=== PATIENT | female | born 1955 | race Caucasian/White ===

== ENCOUNTER 2017-03-10 07:34 | Emergency (ER) | payer OTHER ==
[~2017-03-10] VITALS: Ht 162.6 cm; Wt 75.4 kg
[2017-03-10 08:26] LABS: HEMATOCRIT 41.7 % (36.0-46.0); MCH 29.8 PG (29.0-34.0); MCHC 34.1 G/DL (30.0-36.0); MCV 87.4 FL (83-99); MEAN PLAT.VOLUME 9.1 uM^3 (9.5-12.4); PLATELET COUNT 301 K/uL (156-360); RBC DIS.WIDTH-CV 12.9 % (11.8-14.6); RBC DIS.WIDTH-SD 41.3 % (39-53); RED BLOOD COUNT 4.77 M/uL (3.80-5.20); WHITE BLOOD COUNT 7.2 K/uL (4.1-10.2)
[2017-03-10 08:36] LABS: CHLORIDE 105 mEq/L (99-109); POTASSIUM 3.9 mEq/L (3.7-5.4); SODIUM 140 mEq/L (136-147)
[2017-03-10 08:38] LABS: GLUCOSE 123 mg/dL (70-99)
[2017-03-10 08:40] LABS: ANION GAP 12 MEQ/L (2-14)
[2017-03-10 08:42] LABS: GFR ESTIMATE (CALCULATED) > 59 mL/min/
[2017-03-10 08:43] LABS: UREA NITROGEN (BUN) 13 mg/dL (9-23)
[2017-03-10 10:24] LABS: TROP-I INTERPRETATION NEGATIVE; TROPONIN-I < 0.01 ng/mL (0.0-0.30)
[2017-03-10 11:09] LABS: ADD MIUA? YES; BILIRUBIN NEGATIVE; BLOOD SMALL; COLOR YELLOW ((YELLOW)); GLUCOSE (STRIP) NEGATIVE; KETONES NEGATIVE; LEUKOCYTES NEGATIVE; NITRITE NEGATIVE; PROTEIN (STRIP) NEGATIVE; UROBILINOGEN 0.2 MG/DL (0.2-1.0)
[2017-03-10 11:11] LABS: BACTERIA RARE /HPF; EPITHELIAL CELLS NONE SEEN /HPF; MUCUS TRACE /LPF; RED BLOOD CELLS 0-5 /HPF (0-5); UCUL ADDED? NO; WHITE BLOOD CELLS 0-5 /HPF (0-5)
[2017-03-10] MEDS ORDERED: ZOFRAN ODT4 MG PO (13:22)
[2017-03-10 13:56] VITALS: BP 143/76
== END 2017-03-10 13:57 | disposition home or self-care (01) ==
LOC: EME 07:34
DX: R42 Dizziness and giddiness (principal); R11.2 Nausea with vomiting, unspecified; R51 Headache; K21.9 Gastro-esophageal reflux disease without esophagitis; E04.2 Nontoxic multinodular goiter; Z90.49 Acquired absence of other specified parts of digestive tract; E78.5 Hyperlipidemia, unspecified
CPT/HCPCS: 70496; 70498; 70551; 80048; 81003; 84484; 85027; 93005; 99281; 99285; J2405; J7030

== ENCOUNTER 2017-03-11 08:44 | Observation (INO) | payer OTHER ==
[~2017-03-11] VITALS: Ht 162.6 cm; Wt 77.1 kg
[~2017-03-11 08:44] MED LIST: ZOFRAN ODT4 MG PO
[2017-03-11 09:37] LABS: HEMATOCRIT 40.4 % (36.0-46.0); MCH 29.6 PG (29.0-34.0); MCHC 34.2 G/DL (30.0-36.0); MCV 86.5 FL (83-99); MEAN PLAT.VOLUME 9.1 uM^3 (9.5-12.4); PLATELET COUNT 291 K/uL (156-360); RBC DIS.WIDTH-SD 40.5 % (39-53); RED BLOOD COUNT 4.67 M/uL (3.80-5.20); WHITE BLOOD COUNT 5.8 K/uL (4.1-10.2)
[2017-03-11 09:46] LABS: CHLORIDE 105 mEq/L (99-109); POTASSIUM 3.8 mEq/L (3.7-5.4); SODIUM 137 mEq/L (136-147)
[2017-03-11 09:48] LABS: GLUCOSE 143 mg/dL (70-99)
[2017-03-11 09:49] LABS: ANION GAP 11 MEQ/L (2-14)
[2017-03-11 09:52] LABS: GFR ESTIMATE (CALCULATED) > 59 mL/min/
[2017-03-11 09:53] LABS: UREA NITROGEN (BUN) 12 mg/dL (9-23)
[2017-03-11 09:57] LABS: TROP-I INTERPRETATION NEGATIVE; TROPONIN-I < 0.01 ng/mL (0.0-0.30)
[2017-03-11 14:19] VITALS: BP 145/75
[2017-03-11 20:00] VITALS: BP 162/85
[2017-03-12 00:48] VITALS: BP 132/70
[2017-03-12 04:25] VITALS: BP 129/67
[2017-03-12 06:07] LABS: HEMATOCRIT 34.6 % (36.0-46.0); MCH 29.8 PG (29.0-34.0); MCHC 33.5 G/DL (30.0-36.0); MCV 88.9 FL (83-99); MEAN PLAT.VOLUME 9.3 uM^3 (9.5-12.4); PLATELET COUNT 233 K/uL (156-360); RBC DIS.WIDTH-CV 13.3 % (11.8-14.6); RBC DIS.WIDTH-SD 43.5 % (39-53); RED BLOOD COUNT 3.89 M/uL (3.80-5.20); WHITE BLOOD COUNT 4.6 K/uL (4.1-10.2)
[2017-03-12 07:40] LABS: ALKALINE PHOSPHATASE 41 IU/L (3-129); CHLORIDE 111 MEQ/L (99-109); SAMPLE HEMOLYSIS CHECK 0; SAMPLE ICTERIC CHECK 0; SAMPLE LIPEMIA CHECK 0; TOTAL BILIRUBIN 1.3 MG/DL (0.0-1.0); UREA NITROGEN (BUN) 11 mg/dL (9-23)
[2017-03-12 07:41] LABS: GLUCOSE 81 mg/dL (70-99)
[2017-03-12 07:42] LABS: SODIUM 144 MEQ/L (136-147)
[2017-03-12 08:20] LABS: GFR ESTIMATE (CALCULATED) > 59 mL/min/
[2017-03-12 08:24] LABS: ANION GAP 8 MEQ/L (2-14)
[2017-03-12 08:35] VITALS: BP 147/84
[2017-03-12] MEDS ORDERED: PROMETHAZINE HC25 M1 PO (11:44)
[2017-03-12] MEDS ORDERED: ANTIVERT25 MG PO (11:44)
[2017-03-12] MEDS ORDERED: PEPCID40 MG PO (11:45)
== END 2017-03-12 12:33 | disposition home or self-care (01) ==
LOC: EME 08:44 → EDOF 12:25 → ENRESERV 12:28 → EDOF 13:05 → 5WEST 13:58 → ENPENDDIS 03-12 12:13 → 5WEST 03-12 12:33
PROVIDERS: Internal Medicine; Nurse Practitioner Family
DX: R42 Dizziness and giddiness (principal); R11.2 Nausea with vomiting, unspecified; K21.9 Gastro-esophageal reflux disease without esophagitis; G24.9 Dystonia, unspecified; T45.0X5A Adverse effect of antiallergic and antiemetic drugs, initial encounter; Z90.49 Acquired absence of other specified parts of digestive tract; Z82.49 Family history of ischemic heart disease and other diseases of the circulatory system; Z80.3 Family history of malignant neoplasm of breast; Z82.5 Family history of asthma and other chronic lower respiratory diseases; Z88.0 Allergy status to penicillin
CPT/HCPCS: 71010; 80048; 80053; 84484; 85027; 93005; 99281; 99285; C9113; G0378; G8978 GP CH; G8979 GP CH; G8980 GP CH; J1200; J1650; J2405; J2765; J7030; Q0169; S0028